=== PATIENT | male | born 1995 | race Caucasian/White ===

== ENCOUNTER 2024-04-15 18:11 | Emergency (ER) | payer OTHER ==
[~2024-04-15] VITALS: Ht 180.3 cm; Wt 102.9 kg
[2024-04-15 18:18] VITALS: TEMP 97.2
[2024-04-15 19:06] LABS: BASO % 0.6 % (0.0-1.0); EOS # 0.1 10^3/uL (0.0-0.5); EOS % 1.2 % (0.0-3.0); HEMATOCRIT 44.6 % (42.0-52.0); HEMOGLOBIN 15.7 g/dl (13.5-17.5); LYMPH # 1.8 10^3/uL (1.5-5.0); LYMPH % 26.9 % (24.0-44.0); MEAN CORPUSCULAR HEMOGLOBIN 31.8 pg (27.0-33.0); MEAN CORPUSCULAR HGB CONC 35.2 g/dl (32.0-36.5); MEAN CORPUSCULAR VOLUME 90.3 fl (80.0-96.0); MONO # 0.5 10^3/uL (0.0-0.8); MONO % 8.1 % (2.0-8.0); NEUTROPHILS # 4.1 10^3/uL (1.5-8.5); NEUTROPHILS % 62.9 % (36.0-66.0); PLATELET COUNT, AUTOMATED 202 10^3/uL (150-450); RED BLOOD COUNT 4.94 10^6/uL (4.30-6.10); WHITE BLOOD COUNT 6.6 10^3/uL (4.0-10.0)
[2024-04-15 19:37] LABS: ALBUMIN 4.3 G/DL (3.2-5.2); ALKALINE PHOSPHATASE 128 U/L (46-116); ALT/SGPT 45 U/L (7.0-40); AST/SGOT 20 U/L (<34); BILIRUBIN,DIRECT 0.1 MG/DL (<0.4); BILIRUBIN,TOTAL 0.5 MG/DL (0.3-1.2); BLOOD UREA NITROGEN 13 MG/DL (9-23); CALCIUM LEVEL 8.8 MG/DL (8.5-10.1); CARBON DIOXIDE LEVEL 29 MMOL/L (20-31); CHLORIDE LEVEL 106 MMOL/L (98-107); CK-MB VALUE MASS < 1.0 NG/ML (<3.6); CREATININE FOR GFR 1.07 MG/DL (0.70-1.30); GLOMERULAR FILTRATION RATE > 60.0 (>60); GLUCOSE, FASTING 82 MG/DL (60-100); MAGNESIUM LEVEL 1.8 MG/DL (1.8-2.4); POTASSIUM SERUM 3.8 MMOL/L (3.5-5.1); SODIUM LEVEL 140 MMOL/L (136-145); TOTAL PROTEIN 7.2 G/DL (5.7-8.2)
[2024-04-15 19:39] LABS: THYROID STIMULATING HORMONE 1.542 uIU/ML (0.55-4.78)
[2024-04-15 19:41] LABS: CPK CREATINE PHOSPHOKINASE 193 U/L (46-171); MB/CK RELATIVE INDEX 0.51 (< OR =4)
[2024-04-15 20:07] VITALS: BP 131/60; O2SAT 95
[2024-04-15] MEDS ORDERED: MEDR4PAK PO (20:14)
[2024-04-15] MEDS ORDERED: FLON1SPR NARES (20:15)
== END 2024-04-15 20:33 | disposition home or self-care (01) ==
LOC: M ED 18:11
DX: H93.12 Tinnitus, left ear (principal); H69.82 Other specified disorders of Eustachian tube, left ear; Z79.899 Other long term (current) drug therapy

== ENCOUNTER → 2024-05-17 | Outpatient (CLI) | payer OTHER ==
[~2024-05-17] MED LIST: FLON1SPR NARES; MEDR4PAK PO; PROHANCE 279.3MG/ML 15ML VIAL As Ordered ONE; PROHANCE 279.3MG/ML 5ML VIAL As Ordered ONE
== END ==
LOC: M RAD 14:44
PROVIDERS: ATTEND Otolaryngology
DX: H81.392 Other peripheral vertigo, left ear (principal)

== ENCOUNTER 2024-05-24 16:02 | Emergency (ER) | payer OTHER ==
[~2024-05-24] VITALS: Ht 180.3 cm; Wt 104.1 kg
[~2024-05-24 16:02] MED LIST changes: -PROHANCE 279.3MG/ML 15ML VIAL As Ordered ONE; -PROHANCE 279.3MG/ML 5ML VIAL As Ordered ONE
[2024-05-24 19:12] VITALS: BP 135/81; TEMP 97.5; O2SAT 99
== END 2024-05-24 19:13 | disposition home or self-care (01) ==
LOC: M ED 16:02
DX: S29.011A Strain of muscle and tendon of front wall of thorax, initial encounter (principal); Y92.019 Unspecified place in single-family (private) house as the place of occurrence of the external cause; Y93.9 Activity, unspecified; Y99.9 Unspecified external cause status
CPT/HCPCS: 73060; 99283; G0463

== ENCOUNTER 2025-01-29 18:20 | Emergency (ER) | payer OTHER ==
[~2025-01-29] VITALS: Ht 180.3 cm; Wt 101.4 kg
[2025-01-29] MEDS: PROPARACAINE 0.5% OPHTH SOL 15ML OD ONE (18:35)
[2025-01-29] MEDS: FLUORESCEIN OPHTH 1 MG STRIP OD ONE (18:35)
[2025-01-29] MEDS ORDERED: HOME MED LIST COMPLETE! XX SCH (18:55)
[2025-01-29] MEDS ORDERED: ERYT5OIN25 OP (19:40)
[2025-01-29] MEDS: ERYTHROMYCIN OPHTH OINT OD ONE (19:44)
[2025-01-29 19:50] VITALS: BP 117/74; TEMP 98; O2SAT 99
== END 2025-01-29 19:53 | disposition home or self-care (01) ==
LOC: M ED 18:20
DX: H57.11 Ocular pain, right eye (principal); Z79.1 Long term (current) use of non-steroidal anti-inflammatories (NSAID)